=== PATIENT | male | born 1990 | race Hispanic/Latino ===

== ENCOUNTER 2017-08-26 12:17 | Emergency (ER) | payer OTHER ==
[~2017-08-26] VITALS: Ht 182.9 cm; Wt 68.9 kg
[2017-08-26 14:52] VITALS: BP 120/70
[2017-08-26] MEDS ORDERED: BENTYL10 MG/1 ML PO (14:54)
[2017-08-26] MEDS ORDERED: ZOFRAN ODT4 MG SL (14:56)
[2017-08-26] MEDS ORDERED: DICYCLOMINE HCL 20 MG TAB PO ONE (15:00)
== END 2017-08-26 15:15 | disposition home or self-care (01) ==
LOC: FSED 12:17
DX: R10.11 Right upper quadrant pain (principal); R10.31 Right lower quadrant pain; R11.0 Nausea; R19.7 Diarrhea, unspecified
CPT/HCPCS: 80048; 80076; 81003; 85025; 99283

== ENCOUNTER 2017-11-08 19:58 | Emergency (ER) | payer OTHER ==
[~2017-11-08] VITALS: Ht 182.9 cm; Wt 72.6 kg
[~2017-11-08 19:58] MED LIST: BENTYL10 MG/1 ML PO; ZOFRAN ODT4 MG SL
[2017-11-08 23:46] VITALS: BP 112/84
== END 2017-11-08 22:38 | disposition home or self-care (01) ==
LOC: FSED 19:58
DX: R05 Cough (principal); B34.9 Viral infection, unspecified
CPT/HCPCS: 99282